=== PATIENT | male | born 1940 | race Caucasian/White ===

== ENCOUNTER 2024-07-04 08:03 | Day surgery (SDC) | payer OTHER ==
[~2024-07-04] VITALS: Ht 180.3 cm; Wt 89.8 kg
[~2024-07-04 08:03] MED LIST: ALBU108A5 IN; AMLO1TAB22 PO; ASPI-543 PO; CARV6.2551 PO; EVOL140I SC; EZET10TA22 PO; FENO160T PO; FINA5TAB4 PO; FINE20TA PO; HYDR25TA5 PO; ISOS10TA5 PO; LOSA-533 PO; NIFE1TAB31 PO; OXY5T PO; PANT40T PO; POM INH; POM PO; SENNTAB OR; TAMS0.4C39 PO; TICA90TA PO; TRAZ-228 PO
[2024-07-04] MEDS ORDERED: IODIXANOL 320MG/ML 100ML BTL IV ONE ×3 (08:16→10:24)
[2024-07-04] MEDS ORDERED: ANGIOMAX 250 MG VIAL IV ONE (08:53)
[2024-07-04] MEDS ORDERED: HEPARIN SODIUM (PORCINE) 5000 UNITS/ML 1ML VIAL ONE (08:53)
[2024-07-04] MEDS ORDERED: VERAPAMIL 2.5MG/ML INJ 2ML VIAL IV ONE (08:53)
[2024-07-04] MEDS ORDERED: MIDAZOLAM HCL 2MG/2ML 2ml VIAL (1mg/ml) ONE ×2 (08:54→09:40)
[2024-07-04] MEDS ORDERED: LIDOCAINE 2%HCL (LOCAL ANESTH.) INJ 20ML MDV ONE (08:54)
[2024-07-04] MEDS ORDERED: fentaNYL CITRATE 100 MCG/2 ML VL ONE ×2 (08:54→10:08)
[2024-07-04] MEDS ORDERED: TICAGRELOR 90 MG TAB ONE (10:35)
[2024-07-04] MEDS: oxyCODONE HCL 5MG TAB PO PRN (13:10)
[2024-07-04] MEDS: LOSARTAN POTASSIUM 25 MG TAB PO ONE (15:00)
[2024-07-04] MEDS: amLODIPine BESYLATE 5 MG TAB PO ONE (15:00)
--- NOTE | 2024-07-06 16:08 | DVHOP2 ---
Operative Report - 2 Report Details Date: 07/04/24 Preop Diagnosis: CAD. Postop Diagnosis: Severe RCA stenosis. Surgeon: Jacquelyn Yanes MD Anesthesiologist: Conscious sedation Anesthesia: Mac, Local Consent: The patient was informed of the risks and benefits of the procedure. These include but are not limited to complications of anesthesia, postoperative infection, incomplete relief of symptoms, recurrence of symptoms, damage to blood vessels, nerves and tendons, deep venous thrombosis, pulmonary embolism and possible need for repeat surgery in the future. Complications: No complications Estimated Blood Loss: 10 cc Findings: Severe CAD Indications for Surgery: Chest pain Name of Procedure Performed Bilateral cine coronary angiography. Procedure Details Procedure Details: Prior local anesthesia with 2% lidocaine to the right groin and full informed consent obtained the patient was prepped and draped in usual fashion followed by placement of a six Mongolian sheath into the right femoral artery through which a 45 cm destination catheter was placed into the right femoral artery and into the aortic given a large stent graft placed in the thoracic and abdominal aorta involving bilateral iliacs. This allowed us to pass Amplatz catheters into the right and left coronary ostia. Hemodynamics: Aortic blood pressure was 130/70. End-diastolic pressure was 15. Ventriculography was not performed.Creatinine was elevated. Coronary anatomy: The RCA is a large vessel it has a proximal to mid 99% stenosis. The mid and distal segments are otherwise free of significant disease. Posterolateral branches and PDA are normal. Left main is large and normal. Left anterior descending is a large vessel with mild plaquing in its proximal mid section. An eccentric lesion noted in the distal LAD. FFR performed reveals a value Of 0.84 Consistent with mild disease. Diagonals are free of significant disease. Circumflex is large with two marginals free of significant disease. Ventriculography was not performed. An al two guide was then obtained and placed into the RCA. A Specter wire placed across the area of stenosis. Pre dilatation with a two five Medtronic balloon. We then placed a 4-0 by 15 mm stent into the RCA post dilated with a 5 mm noncompliant balloon at 15 atmospheres. There was excellent antegrade flow without thrombus formation and our dissection. Impression: Successful PTCA and stenting of significant stenosis in the RCA. Mild disease of the LAD. Normal end-diastolic pressures. Recommendations: Continue dual antiplatelet therapy. Medical therapy to continue. Condition Good Disposition Home Date of Service: Jul 04, 2024 Billing Provider: JACQUELYN YANES Sr., MD Cardiology Common Codes: [id number] INP/OBS CARE (High) Peripheral Procedures Codes: 13045-67368-VRSAT ATHERECTOMY ANGIO JACQUELYN YANES Sr., MD Jul 06, 2024 16:08
== END 2024-07-04 16:05 | disposition home or self-care (01) ==
LOC: CATH 08:03
PROVIDERS: ATTEND Internal Medicine
DX: I25.10 Atherosclerotic heart disease of native coronary artery without angina pectoris (principal); R93.1 Abnormal findings on diagnostic imaging of heart and coronary circulation; Z79.82 Long term (current) use of aspirin; Z79.899 Other long term (current) drug therapy; Z96.89 Presence of other specified functional implants; Z87.891 Personal history of nicotine dependence; Z88.8 Allergy status to other drugs, medicaments and biological substances; Z83.3 Family history of diabetes mellitus; Z82.5 Family history of asthma and other chronic lower respiratory diseases; Z82.49 Family history of ischemic heart disease and other diseases of the circulatory system; Z80.8 Family history of malignant neoplasm of other organs or systems
CPT/HCPCS: 75580; 93454; C1725; C1753; C1769; C1874; C1887; C1894; C9600; J0583; J1644; J2250; J3010; J7040; Q9967; 99152; 99153

== ENCOUNTER 2025-02-19 12:08 | Emergency (ER) | payer OTHER ==
[~2025-02-19] VITALS: Ht 177.8 cm; Wt 88.6 kg
--- NOTE | 2025-02-19 12:42 | ED.PDOC ---
HPI Comments 84 year old male presents to the ED with a chief complaint of chest pain onset today (02/19/25). Patient states he had a stress test today as pre-op for abdominal aneurysm. Patient states he took Nitro for chest pain, stress test was cancelled, was advised to come to ED. He states chest pain has resolved, is currently experiencing shortness of breath. Patient states he has an 8 cm abdominal aneurysm, is having difficulty getting appointment for surgery. PMHx COPD, HTN, HLD, OR. Denies nausea, vomiting, diarrhea, fever, chills, headache, dizziness, blurred vision.No other symptoms or modifying factors present at this time. Chief Complaint: Chest Pain Time Seen by MD: 12:30 Primary Care Provider: SUNDAR Reviewed Notes: Medications, Allergies Allergies: Coded Allergies: Statins (Verified Allergy, Unknown, 07/02/24) Uncoded Allergies: BETA BLOCKERS (Allergy, Unknown, 03/10/16) Home Meds Reported Medications Amlodipine Besylate (Amlodipine Besylate) 5 Mg Tab, 10 MG PO DAILY, MG 07/02/24 Isosorbide Mononitrate (Isosorbide Mononitrate) 10 Mg Tab, 20 MG PO BID, MG 07/02/24 Finerenone (Kerendia) 20 Mg Tab, 20 MG PO QAM for KIDNEYS, TAB 07/02/24 Evolocumab (Repatha) 140 Mg/Ml Inj, 140 MG SC BI-WEEKLY for HIGH CHOLESTEROL, INJ 07/02/24 Hctz (Hydrochlorothiazide) 25 Mg Tab, 12.5 MG PO BID, TAB 07/02/24 Sennosides-Docusate Sodium (Stool Softener Laxative) Laxative Tab, 1 OR BID, TAB 07/02/24 Patients Own Medication (PATIENTS OWN MEDICATION) ., 65 MG PO DAILY PTS OWN MED-OBTAIN FROM PT AND SEND TO RX DRUG: FREQ: RX# EXP: DATE DISP: TECH: RPH: 07/02/24 Aspirin (Aspir-Low) 81 Mg Tab, 81 MG PO DAILY for CAD, MG 07/02/24 Ticagrelor Base (BRILINTA) 90 Mg Tab, 90 MG PO BID, TAB 07/02/24 Pantoprazole Sodium Sesquihydr (Pantoprazole Sodium) 40 Mg Tab, 20 MG PO BIDP P RN for GERD, TAB 07/02/24 Finasteride (Finasteride) 5 Mg Tab, 5 MG PO QPM, MG 07/02/24 Tamsulosin Hcl (Tamsulosin Hcl) 0.4 Mg Cap, 0.4 MG PO QPM for 30 Days, MG 07/02/24 Albuterol Sulfate (Albuterol Sulfate Hfa) 108 Mcg/Act Aer, 90 MCG IN PRN, AER 07/02/24 Patients Own Medication (PATIENTS OWN MEDICATION) ., INH BID for FLUTICAS 250/SALMETEROL 50 PTS OWN MED-OBTAIN FROM PT AND SEND TO RX DRUG: FREQ: RX# EXP: DATE DISP: TECH: RPH: 07/02/24 Ezetimibe (Zetia) 10 Mg Tab, 1 TAB PO DAILY, #30 TAB 5 Refills 07/02/24 Fenofibrate (Fenofibrate) 160 Mg Tab, 1 TAB PO DAILY, #30 TAB 5 Refills 07/02/24 Carvedilol (Carvedilol) 6.25 Mg Tab, 6.25 MG PO BID, MG 07/02/24 Nifedipine (Nifedipine Er) 30 Mg Tab, 1 TAB PO DAILY, #90 TAB 1 Refill 07/02/24 Losartan Potassium (Losartan Potassium) 25 Mg Tab, 1 TAB PO BID for HTN, #90 TAB 1 Refill 07/02/24 Trazodone Hcl (Trazodone Hcl) 100 Mg Tab, 100 MG PO HS for insomnia, MG 07/02/24 Oxycodone Hcl (OXYCODONE HCL) 5 Mg Tb, 10 MG PO QIDP for Moderate to severe pain, TAB 07/02/24 Information Source: Patient, Relative (Child) Mode of Arrival: Ambulatory Severity: Moderate Timing: Hours Duration: Since onset Prehospital treatment: None Quality: Pressure Onset: At Rest Cardiac Risk Factors: Hyperlipidemia, HTN History of: OR Modifying Factors: Nothing Associated Signs and Symptoms: SOB Past Medical History PAST MEDICAL HISTORY: COPD, GERD, High Lipids, HTN, OR Past Medical History (Other): abdominal aneurysm Surgical History: Hernia Repair, Tonsillectomy Family History Family History: Unobtainable Social History Smoker: Non-Smoker Alcohol: Occasionally Drugs: Denies Drug Use Lives In: Home Constitutional: denies: chills, diaphoresis, fatigue, fever, malaise, sweats, weakness, others EENTM: denies: blurred vision, double vision, ear bleeding, ear discharge, ear drainage, ear pain, ear ringing, eye pain, eye redness, hearing loss, mouth pain, mouth swelling, nasal discharge, nose bleeding, nose congestion, nose pain, photophobia, tearing, throat pain, throat swelling, voice changes, others Respiratory: reports: shortness of breath; denies: cough, hemoptysis, orthopnea, SOB at rest, SOB with excertion, stridor, wheezing, others Cardiovascular: reports: chest pain; denies: dizzy spells, diaphoresis, Dyspnea on exertion, edema, irregular heart beat, left arm pain, lightheadedness, palpitations, PND, syncope, others Gastrointestinal: denies: abdomen distended, abdominal pain, blood streaked bowels, constipated, diarrhea, dysphagia, difficulty swallowing, hematemesis, melena, nausea, poor appetite, poor fluid intake, rectal bleeding, rectal pain, vomiting, others Genitourinary: denies: burning, dysuria, flank pain, frequency, hematuria, incontinence, penile discharge, penile sore, pain, testicle pain, testicle swelling, urgency, others Neurological: denies: dizziness, fainting, headache, left sided numbness, left sided weakness, numbness, paresthesia, pre-existing deficit, right sided numbness, right sided weakness, seizure, speech problems, tingling, tremors, weakness, others Musculoskeletal: denies: back pain, gout, joint pain, joint swelling, muscle pain, muscle stiffness, neck pain, others Integumetry: denies: bruises, change in color, change in hair/nails, dryness, laceration, lesions, lumps, rash, wounds, others Allergic/Immunocompromised: denies: Difficulty Healing, Frequent Infections, Hives, Itching, others Hematologic/Lymphatic: denies: anemia, blood clots, easy bleeding, easy bruising, swollen glands, others Endocrine: denies: excessive hunger, excessive sweating, excessive thirst, excessive urination, flushing, intolerance to cold, intolerance to heat, unexplained weight gain, unexplained weight loss, others Psychiatric: denies: anxiety, bipolar disorder, depression, hopeless, panic disorder, schizophrenia, sleepless, suicidal, others All Other Systems: Reviewed and Negative Physical Exam General Appearance: Moderate Distress, Normal HEENT: Normal ENT Inspection, Pharynx Normal, TMs Normal Neck: Full Range of Motion, Non-Tender, Normal, Normal Inspection Respiratory: Chest Non-Tender, Lungs Clear, No Accessory Muscle Use, No Respiratory Distress, Normal Breath Sounds Cardiovascular: No Edema, No JVD, No Murmur, No Gallop, Normal Peripheral Pulses, Regular Rate/Rhythm Breast Exam: Deferred Gastrointestinal: No Organomegaly, No Pulsatile Mass, Normal Bowel Sounds, Soft, Other (Umbilical hernia) Genitalia: Deferred Pelvic: Deferred Rectal: Deferred Extremities: No calf tenderness, Normal capillary refill, Normal inspection, Normal range of motion, Non-tender, No pedal edema Musculoskeletal : Apperance: Normal Neurologic: Alert, quick technician II-XII nml as Tested, No Motor Deficits, Normal Affect, Normal Mood, No Sensory Deficits Cerebellar Function: Normal Reflexes: Normal Skin: Dry, Normal Color, Warm Peripheral Pulses: 3+ Radial (R), 3+ Radial (L) Lymphatic: No Adenopathy Was a procedure done? Was a procedure done?: No CP Differential Dx Differential Diagnosis: A-fib, A-Flutter, Angina, Anxiety / Panic Attack, Atrial Dysrhythmia, Electrolyte Disorder X-Ray, Labs, Meds, VS Vital Signs Date Time Temp Pulse Resp B/P (MAP) Pulse Ox O2 Delivery O2 Flow Rate FiO2 02/19/25 17:40 157/89 02/19/25 17:38 80 31 157/89 02/19/25 16:27 191/86 02/19/25 15:54 81 30 93 Room Air* 0 21 02/19/25 15:54 81 30 191/86 (121) 93 02/19/25 13:14 83 02/19/25 12:15 97.8 87 16 159/78 97 97.8 02/19/25 12:13 87 Lab Test 02/19/25 15:49 02/19/25 13:30 02/19/25 12:45 Range/Units Troponin I High Sensitivity 8 9 8 </=54 ng/L White Blood Count 3.4 L 4.4-10.8 10^3/uL Red Blood Count 4.67 4.5-5.90 10^6/uL Hemoglobin 14.2 13.5-17.5 g/dL Hematocrit 42.0 41.0-53.0 % Mean Corpuscular Volume 89.8 80.0-100.0 fL Mean Corpuscular Hemoglobin 30.3 28.0-32.0 pg Mean Corpuscular Hemoglobin Concent 33.7 32.0-36.0 g/dL Red Cell Distribution Width 15.3 H 11.8-14.3 % Platelet Count 154 140-450 10^3/uL Mean Platelet Volume 7.7 6.9-10.8 fL Neutrophils (%) (Auto) 67.6 37.0-80.0 % Lymphocytes (%) (Auto) 20.1 10.0-50.0 % Monocytes (%) (Auto) 10.9 0.0-12.0 % Eosinophils (%) (Auto) 1.1 0.0-7.0 % Basophils (%) (Auto) 0.3 0.0-2.0 % Neutrophils # (Auto) 2.3 1.6-8.6 10 ^3/uL Lymphocytes # (Auto) 0.7 0.4-5.4 10 ^3/uL Monocytes # (Auto) 0.4 0-1.3 10 ^3/uL Eosinophils # (Auto) 0 0-0.8 10 ^3/uL Basophils # (Auto) 0 0-0.2 10 ^3/uL Nucleated Red Blood Cells 0.0 % Sodium Level 140 136-145 mmol/L Potassium Level 4.7 3.5-5.1 mmol/L Chloride Level 105 98-107 mmol/L Carbon Dioxide Level 29 20-31 mmol/L Anion Gap 6 5-15 Blood Urea Nitrogen 33 H 9-23 mg/dL Creatinine 1.21 0.700-1.30 mg/dL Glomerular Filtration Rate Calc 59 >90 mL/min BUN/Creatinine Ratio 27.3 H 10.0-20.0 Serum Glucose 123 H 74-106 mg/dL Calcium Level 10.8 H 8.7-10.4 mg/dL Current Medications Medications (Trade) Dose Ordered Sig/Jackson Route Start Time Stop Time Status Last Admin Clonidine HCl (Catapres Tablet) 0.2 mg ONCE ONCE PO 02/19/25 16:15 02/19/25 16:16 DC 02/19/25 16:27 Morphine Sulfate 2 mg ONCE ONCE IV 02/19/25 17:45 02/19/25 17:46 02/19/25 17:38 Ondansetron HCl (Zofran) 4 mg ONCE ONCE IV 02/19/25 17:45 02/19/25 17:46 02/19/25 17:37 Patient alert. Complaining of chest pain. Vitals stable. Answering questions. He states that he has been having shortness a breath when he walks for a long distance. Chronic history of heart disease. Has a intraluminal stent that had to be repaired. Waiting for surgery for repair of abdominal aortic aneurysm. Spoke with choice physician. Continue monitoring. CT scan of the abdomen does show increasing abdominal aortic aneurysm. Spoke with the [facility] which had full capacity. [facility] stated that it was too complicated of the surgery for them. Continue to try for transfer. Spoke with choice physician which has stated that patient she will be trans ferred anywhere possible. [place] [id number] Ph: [phone] DIAGNOSTIC IMAGING Diagnostic Imaging Report : [id number] Signed PATIENT: ENMANUEL NOVAK ACCT: [id number] UNIT: [id number] : 1940 LOC: ER ROOM / BED: / AGE / SEX: 84 / M ADM STATUS: REG ER SERVICE [id number] ORDERING PHYSICIAN: LEELEE BERNAL MD PROCEDURE(s): ABPL - CT AB PEL WO CON-NO ORAL OR IV REASON: Aneurysm ORDER NUMBER(s): [id number], ACCESSION NUMBER(s): [id number] EXAM: CT CT AB PEL WO CON-NO ORAL OR IV INDICATION: Aneurysm TECHNIQUE: Volumetric multidetector CT images of the abdomen and pelvis were obtained without contrast. All CT scans at this facility use dose modulation, iterative reconstruction, and/or weight based dosing when appropriate to reduce radiation dose to as low as reasonably achievable. COMPARISON: CT ABD PELVIS WO on DOS: 11/22/24 FINDINGS: [LOWER CHEST]: The partially visualized lung bases are clear without a pleural effusion. The cardiac size is normal without pericardial effusion. [LIVER]: Normal hepatic size without suspicious focal lesion. [GALLBLADDER AND BILIARY TREE]: No cholelithiasis. [SPLEEN]: Calcifications, which may be related to antecedent granulomatous infection. [PANCREAS]: Unremarkable. [ADRENAL GLANDS]: Unremarkable [KIDNEYS]: No hydronephrosis. No nephroureterolithiasis. Areas of cortical thinning compatible with underlying medical renal disease [BLADDER]: Unremarkable for the degree distention. [REPRODUCTIVE ORGANS]: Unremarkable. [BOWEL/MESENTERY]: Stomach is normal. No CT evidence of bowel obstruction. normal appendix. Mild stool burden. Minimal sigmoid diverticulosis. [ASCITES]: Absent [LYMPHADENOPATHY]: No pathologically enlarged lymph nodes by CT size criteria [VASCULATURE]: Large fusiform infrarenal abdominal aortic aneurysm measuring 7.2 x 9.4 cm status post endovascular stent graft placement. Additional stent in the suprarenal abdominal aorta with the additional stents of the celiac, superior mesenteric artery origins in bilateral renal arteries. Bilateral common iliac artery extension. [ABDOMINAL WALL]: Bowel and fat containing ventral abdominal hernia, 6.8 cm neck [MUSCULOSKELETAL]: No acute fracture or aggressive focal osseous lesion. Multifocal degenerative change of the visualized spine. right total hip arthroplasty IMPRESSION: 1. Infrarenal abdominal aortic aneurysm measuring up to 9.4 cm in axial dimension. Limited evaluation without intravenous contrast. Aneurysm previously measured up to 8.3 cm. 2. No retroperitoneal hematoma. ATED BY: STEVEN CASTILLO MD DICTATED DATE/TIME: 02/19/25 133 SIGNED BY: STEVEN CASTILLO MD SIGNED DATE/TIME: 02/19/25 133 CC: Time of 1ST Reevaluation: 13:00 Reevaluation 1ST: Unchanged Patient Education/Counseling: Diagnosis, Treatment, Prognosis Family Education/Counseling: Diagnosis, Treatment, Prognosis SEPSIS Sepsis Screen Physician Orders Electrocardigram (02/19/25 13:21) Electrocardigram (02/19/25 15:21) Ct Ab Pel Wo Con-No Oral Or Iv (02/19/25 12:38) * Strategic Marketing Leader Consult (02/19/25 ) Morphine Sulfate Injection (02/19/25 17:45) Ondansetron Hcl (Zofran) (02/19/25 17:45) Vital Signs Date Time Temp Pulse Resp B/P (MAP) Pulse Ox O2 Delivery O2 Flow Rate FiO2 02/19/25 17:40 157/89 02/19/25 17:38 80 31 157/89 02/19/25 16:27 191/86 02/19/25 15:54 81 30 93 Room Air* 0 21 02/19/25 15:54 81 30 191/86 (121) 93 02/19/25 13:14 83 02/19/25 12:15 97.8 87 16 159/78 97 97.8 02/19/25 12:13 87 Laboratory Tests Test 02/19/25 12:45 White Blood Count 3.4 10^3/uL (4.4-10.8) L Medications Medications Dose Ordered Sig/Jackson Route Start Time Stop Time Status Last Admin Dose Admin Clonidine HCl 0.2 mg ONCE ONCE PO 02/19/25 16:15 02/19/25 16:16 DC 02/19/25 16:27 Morphine Sulfate 2 mg ONCE ONCE IV 02/19/25 17:45 02/19/25 17:46 02/19/25 17:38 Ondansetron HCl 4 mg ONCE ONCE IV 02/19/25 17:45 02/19/25 17:46 02/19/25 17:37 Departure 1 Departure Time of Disposition: 13:32 Impression: Primary Impression: Abdominal aortic aneurysm Qualified Codes: I71.40 - Abdominal aortic aneurysm, without rupture, unspecified Additional Impression: COPD (chronic obstructive pulmonary disease) Qualified Codes: J44.9 - Chronic obstructive pulmonary disease, unspecified Disposition: 02 SHORT TERM HOSPITAL Admit to: Med Surg Condition: Guarded Critical Care Note Critical Care Time?: No Stability Stability form required: No Heart Score Heart Score: Heart Score Response (Comments) Value History Slightly Suspicious 0 EKG Normal 0 Age >65 2 Risk Factors >3 or Hx ASHD 2 Troponin Normal limit 0 Total 4 I personally scribed for LEELEE BERNAL MD ([email or web address]) on 02/19/25 at 12:42. Electronically submitted by Arlen Ramsay ([email or web address]). I personally scribed for LEELEE BERNAL MD ([email or web address]) on 02/19/25 at 13:52. Electronically submitted by Arlen Ramsay ([email or web address]). LEELEE BERNAL MD Feb 19, 2025 12:42
--- NOTE | 2025-02-19 13:41 | DVH ---
EXAM: CT CT AB PEL WO CON-NO ORAL OR IV INDICATION: Aneurysm TECHNIQUE: Volumetric multidetector CT images of the abdomen and pelvis were obtained without contras t. All CT scans at this facility use dose modulation, iterative reconstruction, and/or weight based d osing when appropriate to reduce radiation dose to as low as reasonably achievable. COMPARISON: CT ABD PELVIS WO on DOS: 11/22/24 FINDINGS: [LOWER CHEST]: The partially visualized lung bases are clear without a pleural effusion. The cardiac size is normal without pericardial effusion. [LIVER]: Normal hepatic size without suspicious focal lesion. [GALLBLADDER AND BILIARY TREE]: No cholelithiasis. [SPLEEN]: Calcifications, which may be related to antecedent granulomatous infection. [PANCREAS]: Unremarkable. [ADRENAL GLANDS]: Unremarkable [KIDNEYS]: No hydronephrosis. No nephroureterolithiasis. Areas of cortical thinning compatible with u nderlying medical renal disease [BLADDER]: Unremarkable for the degree distention. [REPRODUCTIVE ORGANS]: Unremarkable. [BOWEL/MESENTERY]: Stomach is normal. No CT evidence of bowel obstruction. normal appendix. Mild sto ol burden. Minimal sigmoid diverticulosis. [ASCITES]: Absent [LYMPHADENOPATHY]: No pathologically enlarged lymph nodes by CT size criteria [VASCULATURE]: Large fusiform infrarenal abdominal aortic aneurysm measuring 7.2 x 9.4 cm status post endovascular stent graft placement. Additional stent in the suprarenal abdominal aorta with the add itional stents of the celiac, superior mesenteric artery origins in bilateral renal arteries. Bilate ral common iliac artery extension. [ABDOMINAL WALL]: Bowel and fat containing ventral abdominal hernia, 6.8 cm neck [MUSCULOSKELETAL]: No acute fracture or aggressive focal osseous lesion. Multifocal degenerative [place] of the visualized spine. right total hip arthroplasty IMPRESSION: 1. Infrarenal abdominal aortic aneurysm measuring up to 9.4 cm in axial dimension. Limited evaluatio n without intravenous contrast. Aneurysm previously measured up to 8.3 cm. 2. No retroperitoneal hematoma.
--- NOTE | 2025-02-19 14:06 | ECG ---
[facility] Test Date: 2025-02-19 Test Time: 12:13:17 Pat Name: ENMANUEL NOVAK Department: Room: Gender: M Drone Operator: JACKELYN : 1940 Requested By: LEELEE BERNAL Order Number: [id number] Reading MD: Measurements Intervals [place] Rate: 87 P: 33 [place]: 211 QRS: -49 QRSD: 153 T: 19 QT: 372 QTc: 448 Interpretive Statements Sinus rhythm Right bundle branch block Abnormal inferior Q waves Please click the below link to view image of tracing.
[2025-02-19 14:10] LABS: Hematocrit 42.0 % (41.0-53.0); Hemoglobin 14.2 g/dL (13.5-17.5); Mean Corpuscular Hemoglobin 30.3 pg (28.0-32.0); Mean Corpuscular Volume 89.8 fL (80.0-100.0); Nucleated Red Blood Cells % 0.0 %
[2025-02-19 14:20] LABS: Chloride 105 mmol/L (98-107); Potassium 4.7 mmol/L (3.5-5.1); Sodium 140 mmol/L (136-145)
[2025-02-19 14:21] LABS: Anion Gap 6 (5-15); Calcium 10.8 mg/dL (8.7-10.4); Carbon Dioxide 29 mmol/L (20-31)
[2025-02-19 14:26] LABS: BUN/Creatinine Ratio 27.3 (10.0-20.0)
[2025-02-19 14:27] LABS: Blood Urea Nitrogen 33 mg/dL (9-23); Glucose 123 mg/dL (74-106)
[2025-02-19 15:54] VITALS: PULSE 81; RESP 30; O2SAT 93
--- NOTE | 2025-02-19 17:15 | DVHINCON2 ---
Date of service: Feb 19, 2025 Referring Physician ER physician Reason for Consultation Large abdominal aortic aneurysm History of Present Illness 84 year old male presents to the ED with a chief complaint of chest pain onset today (02/19/25). Patient states he had a stress test today as pre-op for abdominal aneurysm. Patient states he took Nitro for chest pain, stress test was cancelled, was advised to come to ED. He states chest pain has resolved, is currently experiencing shortness of breath. Patient states he has an 8 cm abdominal aneurysm, is having difficulty getting appointment for surgery. PMHx COPD, HTN, HLD, NV. Denies nausea, vomiting, diarrhea, fever, chills, headache, dizziness, blurred vision.No other symptoms or modifying factors present at this time. In the ER he underwent evaluations including CT of the abdomen showed a very large 9.4 cm abdominal aortic aneurysm with a prior endovascular stenting. Therefore vascular surgery consultation is obtained in the ER. Vascular surgeon recommended given the the size of the aneurysm with prior endovascular stenting and high-risk recommended to transferred to higher level of care. Past Medical History Abdominal aortic aneurysm, COPD, GERD, High Lipids, HTN, NV Past Surgical History Endovascular stenting of his aneurysm, hernia repair and tonsillectomy Allergies: Coded Allergies: Statins (Verified Allergy, Unknown, 07/02/24) Uncoded Allergies: BETA BLOCKERS (Allergy, Unknown, 03/10/16) Home Meds Reported Medications Amlodipine Besylate (Amlodipine Besylate) 5 Mg Tab, 10 MG PO DAILY, MG 07/02/24 Isosorbide Mononitrate (Isosorbide Mononitrate) 10 Mg Tab, 20 MG PO BID, MG 07/02/24 Finerenone (Kerendia) 20 Mg Tab, 20 MG PO QAM for KIDNEYS, TAB 07/02/24 Evolocumab (Repatha) 140 Mg/Ml Inj, 140 MG SC BI-WEEKLY for HIGH CHOLESTEROL, INJ 07/02/24 Hctz (Hydrochlorothiazide) 25 Mg Tab, 12.5 MG PO BID, TAB 07/02/24 Sennosides-Docusate Sodium (Stool Softener Laxative) Laxative Tab, 1 OR BID, TAB 07/02/24 Patients Own Medication (PATIENTS OWN MEDICATION) ., 65 MG PO DAILY PTS OWN MED-OBTAIN FROM PT AND SEND TO RX DRUG: FREQ: RX# EXP: DATE DISP: TECH: [facility]: 07/02/24 Aspirin (Aspir-Low) 81 Mg Tab, 81 MG PO DAILY for CAD, MG 07/02/24 Ticagrelor Base (BRILINTA) 90 Mg Tab, 90 MG PO BID, TAB 07/02/24 Pantoprazole Sodium Sesquihydr (Pantoprazole Sodium) 40 Mg Tab, 20 MG PO BIDP PRN for GERD, TAB 07/02/24 Finasteride (Finasteride) 5 Mg Tab, 5 MG PO QPM, MG 07/02/24 Tamsulosin Hcl (Tamsulosin Hcl) 0.4 Mg Cap, 0.4 MG PO QPM for 30 Days, MG 07/02/24 Albuterol Sulfate (Albuterol Sulfate Hfa) 108 Mcg/Act Aer, 90 MCG IN PRN, AER 07/02/24 Patients Own Medication (PATIENTS OWN MEDICATION) ., INH BID for FLUTICAS 250/SALMETEROL 50 PTS OWN MED-OBTAIN FROM PT AND SEND TO RX DRUG: FREQ: RX# EXP: DATE DISP: TECH: [facility]: 07/02/24 Ezetimibe (Zetia) 10 Mg Tab, 1 TAB PO DAILY, #30 TAB 5 Refills 07/02/24 Fenofibrate (Fenofibrate) 160 Mg Tab, 1 TAB PO DAILY, #30 TAB 5 Refills 07/02/24 Carvedilol (Carvedilol) 6.25 Mg Tab, 6.25 MG PO BID, MG 07/02/24 Nifedipine (Nifedipine Er) 30 Mg Tab, 1 TAB PO DAILY, #90 TAB 1 Refill 07/02/24 Losartan Potassium (Losartan Potassium) 25 Mg Tab, 1 TAB PO BID for HTN, #90 TAB 1 Refill 07/02/24 Trazodone Hcl (Trazodone Hcl) 100 Mg Tab, 100 MG PO HS for insomnia, MG 07/02/24 Oxycodone Hcl (OXYCODONE HCL) 5 Mg Tb, 10 MG PO QIDP for Moderate to severe pain, TAB 07/02/24 Review of Systems No complaints of chest pain or shortness for breath. Other review of systems reviewed normal. Vital Signs Vital Signs Date Time Temp Pulse Resp B/P (MAP) Pulse Ox O2 Delivery O2 Flow Rate FiO2 02/19/25 16:27 191/86 02/19/25 15:54 81 30 93 Room Air* 0 21 02/19/25 12:15 97.8 97.8 Physical Exam Comfortable in bed. HEENT neck supple no JVD. Heart regular rate and rhythm. Lungs fair air movement without wheezing. Abdomen soft positive bowel sounds. Extremities no edema. Labs/Diagnostic Data Labs Test 02/19/25 15:49 02/19/25 12:45 Range/Units Troponin I High Sensitivity 8 </=54 ng/L White Blood Count 3.4 L 4.4-10.8 10^3/uL Red Blood Count 4.67 4.5-5.90 10^6/uL Hemoglobin 14.2 13.5-17.5 g/dL Hematocrit 42.0 41.0-53.0 % Mean Corpuscular Volume 89.8 80.0-100.0 fL Mean Corpuscular Hemoglobin 30.3 28.0-32.0 pg Mean Corpuscular Hemoglobin Concent 33.7 32.0-36.0 g/dL Red Cell Distribution Width 15.3 H 11.8-14.3 % Platelet Count 154 140-450 10^3/uL Mean Platelet Volume 7.7 6.9-10.8 fL Neutrophils (%) (Auto) 67.6 37.0-80.0 % Lymphocytes (%) (Auto) 20.1 10.0-50.0 % Monocytes (%) (Auto) 10.9 0.0-12.0 % Eosinophils (%) (Auto) 1.1 0.0-7.0 % Basophils (%) (Auto) 0.3 0.0-2.0 % Neutrophils # (Auto) 2.3 1.6-8.6 10 ^3/uL Lymphocytes # (Auto) 0.7 0.4-5.4 10 ^3/uL Monocytes # (Auto) 0.4 0-1.3 10 ^3/uL Eosinophils # (Auto) 0 0-0.8 10 ^3/uL Basophils # (Auto) 0 0-0.2 10 ^3/uL Nucleated Red Blood Cells 0.0 % Sodium Level 140 136-145 mmol/L Potassium Level 4.7 3.5-5.1 mmol/L Chloride Level 105 98-107 mmol/L Carbon Dioxide Level 29 20-31 mmol/L Anion Gap 6 5-15 Blood Urea Nitrogen 33 H 9-23 mg/dL Creatinine 1.21 0.700-1.30 mg/dL Glomerular Filtration Rate Calc 59 >90 mL/min BUN/Creatinine Ratio 27.3 H 10.0-20.0 Serum Glucose 123 H 74-106 mg/dL Calcium Level 10.8 H 8.7-10.4 mg/dL Assessment Large abdominal aortic aneurysm Coronary artery atherosclerotic vascular disease COPD Hyperlipidemia Case is discussed with the vascular surgeon in the ER. Given the size of the aneurysm with a complex nature he is recommending patient to be transferred to higher level of care. Therefore I have talked to ER physician Dr. Aviles and discussed with the on-call [facility] case management to look into hospitals where he can be transferred from the ER for further evaluation and management. Problems(with codes): (1) Abdominal aortic aneurysm (2) COPD (chronic obstructive pulmonary disease) Plan discussed with: Other JACK JUAREZ MD Feb 19, 2025 17:15
[2025-02-19] MEDS: ONDANSETRON HCL 4 MG/2 ML VIAL IV ONE (17:37)
[2025-02-19] MEDS: MORPHINE SULFATE INJ 2 MG/ml SYRG IV ONE (17:38)
--- NOTE | 2025-02-19 17:47 | ECG ---
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
[2025-02-19 18:30] VITALS: BP 158/89; PULSE 81; RESP 25; TEMP 97.8; O2SAT 95
== END 2025-02-19 18:40 | disposition short-term general hospital (02) ==
LOC: ER 12:08
DX: I71.43 Infrarenal abdominal aortic aneurysm, without rupture (principal); J44.9 Chronic obstructive pulmonary disease, unspecified; I10 Essential (primary) hypertension; E78.5 Hyperlipidemia, unspecified; I25.2 Old myocardial infarction; Z79.82 Long term (current) use of aspirin; Z79.899 Other long term (current) drug therapy; Z86.79 Personal history of other diseases of the circulatory system; Z88.8 Allergy status to other drugs, medicaments and biological substances; Z90.89 Acquired absence of other organs; Z98.890 Other specified postprocedural states
CPT/HCPCS: 36415; 74176; 80048; 84484; 85025; 93005; 96374; 96375; 99285; J2270; J2405